=== PATIENT | male | born 1950 | race Caucasian/White ===

== ENCOUNTER 2020-02-08 20:58 | Emergency (ER) | payer MEDICARE ==
[~2020-02-08] VITALS: Ht 165.1 cm; Wt 81.6 kg
--- NOTE | 2020-02-08 21:25 | NUR ---
ASSUMED CARE OF PT AT THIS TIME FROM TRIAGE, ACCOMPANIED BY SPOUSE. LIZBET CANDELARIO AT BEDSIDE FOR EVALUATION. 69 Y/O M PRESENTS STATING "MY CATHETER IS PLUGGED, I LAST EMPTIED IT AT ABOUT 10AM, SINCE THEN IT'S JUST LITTLE DRIBBLES, MY BLADDER AND STOMACH ARE DISTENDED AND UNCOMFORTABLE." ABD FIRM, DISTENDED, BLADDER/PELVIS TENDER TO PALPATION. NO DRAINAGE NOTED TO PT'S LEG BAG. PT ARRIVES WITH 14FR DALY IN PLACE SINCE January, SUPPOSED TO SEE UROLOGIST TOMORROW FOR REPLACEMENT AND POSSIBLE REMOVAL IF ABLE TO URINATE ON OWN PER PT. CONT PULSE OX, BP MONITORS APPLIED. VSS. CALL LIGHT IN REACH. FALL PRECUATIONS IN PLACE. SIDE RAILS UPX2. A&OX4. AWAITING ORDERS FROM ERP. ASSESSMENT COMPLETED.
--- NOTE | 2020-02-08 21:45 | NUR ---
DR. MARC AT BEDSIDE FOR EVALUATION, BLADDER SCANNED PER MD ORDER, RESULT >999ML. PER DR. MARC TO REMOVE CURRENT DALY AND REPLACE WITH NEW DALY. PT AND SPOUSE UPDATED ON POC, VERBALIZED UNDERSTANDING
--- NOTE | 2020-02-08 22:30 | NUR ---
ARPIT RN AT BEDSIDE TO ASSIST WITH DALY REMOVAL AND INSERTION PER MD ORDER.
--- NOTE | 2020-02-08 22:45 | NUR ---
14 FR DALY REMOVED AND NEW 16 FR DALY SUCCESSFULLY PLACED BY ARPIT JORGE. PT REPORTS IMMEDIATE RELIEF OF BLADDER DISCOMFORT. ABD DISTENTION IMPROVING GREATLY PER PT "FEEL SO MUCH BETTER, I DON'T LOOK ANY MORE." 1,100ML YELLOW URINE DRAINED, DALY CONTINUES TO DRAIN PROPERLY. UA COLLECTED FROM DALY START AND WALKED TO LAB PER MD ORDER. DALY SECURED WITH SECUREMENT DEVICE. PT TOLERATED PROCEDURE WELL, DENIES ANY PAIN OR DISCOMFORT. VSS. SPOUSE AT BEDSIDE. AWAITING UA RESULTS AND RECHECK.
[2020-02-08 22:59] LABS: CULTURE INDICATED? YES; MICROSCOPIC INDICATED
--- NOTE | 2020-02-08 23:20 | NUR ---
ERP AT BEDSIDE FOR RECHECK, DISCUSSING DISCHARGE POC. AWAITING CHART AND DISCHARGE PAPERS.
--- NOTE | 2020-02-08 23:40 | NUR ---
250 ML YELLOW CLOUDY URINE DRAINED FROM DALY BAG AT THIS TIME. PT POVIDED LEG BAG PER REQUEST AND DR. MARC OKAY. DALY CONTINUES TO DRAIN PROPERLY. PT REPORTS "I FEEL SO MUCH BETTER, WAY LESS DISTENDED AND PRESSURE RELIEVED." DR. MACR DISCUSSED POC WITH PT AND NEED TO KEEP FOLLOW UP APPT WITH UROLOGIST TOMORROW AT 9AM. PT AND SPOUSE VERBALIZED UNDERSTANDING. VSS. AWAITING DISCHARGE PAPERS FROM ERP.
[2020-02-09 00:01] VITALS: BP 123/64
== END 2020-02-09 00:08 | disposition home or self-care (01) ==
LOC: ED 21:30
DX: N30.01 Acute cystitis with hematuria (principal); N40.1 Benign prostatic hyperplasia with lower urinary tract symptoms; R33.8 Other retention of urine; E11.9 Type 2 diabetes mellitus without complications; I10 Essential (primary) hypertension; E78.00 Pure hypercholesterolemia, unspecified
CPT/HCPCS: 51702; 81001; 87086; 99285